=== PATIENT | male | born 1950 | race Caucasian/White ===

== ENCOUNTER → 2022-03-03 09:10 | Outpatient (CLI) | payer MEDICARE, SELFPAY ==
--- NOTE | ~2022-03-03 | MR_ITS ---
EXAMINATION: MR knee RT wo con DATE: 03/03/2022 09:42 INDICATION: Chronic right knee pain TECHNIQUE: Magnetic resonance imaging (MRI) of the right knee was performed without intravenous contr ast. Sequences included coronal PD-weighted FSE, coronal PD-weighted FS FSE, sagittal T2-weighted FS E, sagittal PD-weighted FS FSE and axial PD weighted fat saturated FSE. COMPARISON: None. FINDINGS: Medial compartment: Longitudinal horizontal tear extending to the inferior articular surface at the posterior body of the medial meniscus. Shallow chondral surface irregularity at the central weightbearing medial femoral c ondyle. Lateral compartment: Lateral meniscus is normal. Small region of partial-thickness chondral fissuring along the medial mar gin of the posterior weightbearing lateral femoral condyle with subtle underlying cortical irregulari ty. Patellofemoral compartment: Deep chondral fissuring with mild underlying cortical irregularity and subarticular cystlike change a t the caudal aspect of the trochlear groove. Ligaments and tendons: Anterior and posterior cruciate ligaments are normal. The medial collateral ligament and fibular tashi ateral ligament complex are normal. The extensor mechanism is normal. The visualized medial and later al hamstring tendons as well as the iliotibial band are normal. Fluid: Physiologic amount of fluid in the joint space. No loose osteochondral bodies identified. Osseous/other: Aside from the degenerative subarticular changes at the trochlear groove there is normal marrow signa l throughout. No fracture or pathologic marrow replacing process. IMPRESSION: 1. Longitudinal horizontal tear at the posterior body of the medial meniscus. 2. 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 Reviewed, dictated and finalized at location B. IMPRESSION: 1. Longitudinal horizontal tear at the posterior body of the medial meniscus. 2. 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
== END ==
PROVIDERS: PCP Internal Medicine
DX: M25.561 Pain in right knee (principal); G89.29 Other chronic pain; S83.241A Other tear of medial meniscus, current injury, right knee, initial encounter; M17.11 Unilateral primary osteoarthritis, right knee; M94.261 Chondromalacia, right knee
CPT/HCPCS: 73721